=== PATIENT | male | born 1985 | race Hispanic/Latino ===

== ENCOUNTER 2016-07-15 17:57 | Emergency (ER) | payer SELFPAY ==
--- NOTE | 2016-07-15 22:38 | Emergency Department Report ---
ED Laceration HPI - HPI Chief Complaint: Laceration/Recheck/Suture Stated Complaint: LAC TO L FOOT Time Seen by Provider: 07/15/16 21:13 Occurred When: Today Location: Lower Extremity (left anteriro ankle) Severity: mild Tetanus Status: Up to Date (2014) Laceration Symptoms: Yes Pain, No Foreign Body Sensation, No Numbness, No Weakness Other History: 30-year-old male presents with complaint of accidentally bumping his left ankle into a piece of ceramic tile lying on ground in backyard. Patient states that he sustained a laceration to the left anterior ankle. Denies any other injuries. Visible 2 inch laceration overlying anterior upper aspect of left ankle. States that he received a tetanus shot in 2015. Denies any other injuries. Patient is fully ambulatory. ED Review of Systems ROS: Stated complaint: LAC TO L FOOT Other details as noted in HPI Constitutional: denies: chills, fever Eyes: denies: eye pain, eye discharge, vision change ENT: denies: ear pain, throat pain Respiratory: denies: cough, shortness of breath, wheezing Cardiovascular: denies: chest pain, palpitations Endocrine: no symptoms reported Gastrointestinal: denies: abdominal pain, nausea, diarrhea Genitourinary: denies: urgency, dysuria Musculoskeletal: denies: back pain, joint swelling, arthralgia Skin: denies: rash, lesions Neurological: denies: headache, weakness, paresthesias Psychiatric: denies: anxiety, depression Hematological/Lymphatic: denies: easy bleeding, easy bruising ED Past Medical Hx - Past Medical History Previous Medical History?: No - Surgical History Additional Surgical History: Hernia repair - Social History Smoking Status: Current Every Day Smoker Substance Use Type: None - Medications Home Medications: Home Medications Medication Instructions Recorded Confirmed Last Taken Type Cephalexin [Keflex] 500 mg PO Q12HR #10 cap 07/15/16 Unknown Rx Ibuprofen [Motrin] 600 mg PO Q8H PRN #30 tablet 07/15/16 Unknown Rx Neomycn/Baci Zn/Pmyx Bs/Pramox 28 gm TP BID #1 oint...g. 07/15/16 Unknown Rx [Triple Antibioti-Pain Rlf Oint] Laceration Physical Exam - Exam General: Vital signs noted. No distress. Alert and acting appropriately. Wound Length (cm): 4 Laceration Location: Lower Extremity (left anterior ankle) Full Body Front + Back: 1 - 4 cm horizontal laceration superficial depth across top of left ankle Laceration Exam: Yes Normal Distal CMS (social sensation fully intact dorsalis pedis and posterior tibial pulses fully intact on palpation), No Foreign Body, No Exposed Tendon, Vessel, or Nerve, No Tendon Injury (range of motion ankle/ foot fully intact against resistance patient fully ambulatory and no sign of drop foot) ED Course Vital Signs 07/15/16 18:00 Temperature 98.6 F Pulse Rate 100 H Respiratory 16 Rate Blood Pressure 160/86 O2 Sat by Pulse 98 Oximetry - Laceration /Wound Repair Left Lower Anterior Ankle Wound Location: lower extremity (left ankle anterior aspect) Wound Length (cm): 4 Wound's Depth, Shape: superficial Wound Explored: clean Irrigated w/ Saline (ccs): 1,000 Betadine Prep?: Yes Anesthesia: Lidocaine w/ Epi Volume Anesthetic (ccs): 4 Wound Repaired With: sutures Suture Size/Type: 3:0, nylon Number of Sutures: 7 Layer Closure?: No ED Medical Decision Making - Medical Decision Making A/P: Laceration 1-no neurovascular injury to foot, range of motion intact patient fully ambulatory. Sutures to be removed in 7-10 days 2-tetanus updated 2014 3-Motrin when necessary, triple antibiotic ointment 4- and advised to return to the ED for any fevers chills pus drainage erythema at site of laceration Critical care attestation.: If time is entered above; I have spent that time in minutes in the direct care of this critically ill patient, excluding procedure time. ED Disposition Clinical Impression: Laceration of left ankle Qualifiers: Encounter type: initial encounter Qualified Code(s): S91.012A - Laceration without foreign body, left ankle, initial encounter Disposition: DISCHARGED TO HOME OR SELFCARE Is pt being admited?: No Does the pt Need Aspirin: No Condition: Stable Instructions: Laceration (ED), Suture Care (ED) Additional Instructions: Sutures to be removed in 7-10 days Prescriptions: Cephalexin [Keflex] 500 mg PO Q12HR #10 cap Ibuprofen [Motrin] 600 mg PO Q8H PRN #30 tablet PRN Reason: Pain Neomycn/Baci Zn/Pmyx Bs/Pramox [Triple Antibioti-Pain Rlf Oint] 28 gm TP BID #1 oint...g. Time of Disposition: 22:38
[2016-07-15 22:56] VITALS: BP 137/66
== END 2016-07-15 22:57 | disposition home or self-care (01) ==
LOC: ED 17:57
DX: S91.012A Laceration without foreign body, left ankle, initial encounter (principal); F17.200 Nicotine dependence, unspecified, uncomplicated; X58.XXXA Exposure to other specified factors, initial encounter; Y93.89 Activity, other specified; Y99.9 Unspecified external cause status; Y92.89 Other specified places as the place of occurrence of the external cause

== ENCOUNTER 2017-10-11 11:41 | Emergency (ER) | payer OTHER ==
[2017-10-11] MEDS ORDERED: TORADOL IM ONE (12:30)
[2017-10-11 13:16] LABS: Bilirubin,Urine NEG (Negative); Blood,Urine NEG (Negative); Color,Urine Yellow (Yellow); Protein,Urine <15 mg/dL mg/dL (Negative); Urobilinogen,Urine < 2.0 mg/dL (<2.0)
--- NOTE | 2017-10-11 13:36 | Emergency Department Report ---
ED General Adult HPI - General Chief complaint: Pain General Stated complaint: BODY PAIN FOR A WEEK Time Seen by Provider: 10/11/17 12:27 Source: patient Mode of arrival: Ambulatory Limitations: No Limitations - History of Present Illness Initial comments: Patient is a 32-year-old male who is presenting with 2 days of body aches. Patient states that he has some achiness in his lower back as well as his thighs and his left upper extremity. Patient denies any trauma. 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 Patient spiked a fever yesterday. Patient denies any nausea vomiting diarrhea this time. Severity scale (0 -10): 4 - Related Data Previous Rx's Medication Instructions Recorded Last Taken Type Cephalexin [Keflex] 500 mg PO Q12HR #10 cap 07/15/16 Unknown Rx Ibuprofen [Motrin] 600 mg PO Q8H PRN #30 tablet 07/15/16 Unknown Rx Neomycn/Bacitrc/Polymyx/Pramox 28 gm TP BID #1 oint...g. 07/15/16 Unknown Rx [Triple Antibioti-Pain Rlf Oint] Ibuprofen [Motrin] 800 mg PO Q8HR PRN #20 tablet 10/11/17 Unknown Rx traMADol [Ultram] 50 mg PO Q6HR PRN #10 tablet 10/11/17 Unknown Rx Allergies Allergy/AdvReac Type Severity Reaction Status Date / Time No Known Allergies Allergy Unverified 07/15/16 22:56 ED Review of Systems ROS: Stated complaint: BODY PAIN FOR A WEEK Other details as noted in HPI Comment: All other systems reviewed and negative ED Past Medical Hx - Past Medical History Previous Medical History?: No - Surgical History Additional Surgical History: Hernia repair, LEFT HAND SURGERY - Social History Smoking Status: Former Smoker Substance Use Type: Alcohol - Medications Home Medications: Home Medications Medication Instructions Recorded Confirmed Last Taken Type Cephalexin [Keflex] 500 mg PO Q12HR #10 cap 07/15/16 Unknown Rx Ibuprofen [Motrin] 600 mg PO Q8H PRN #30 tablet 07/15/16 Unknown Rx Neomycn/Bacitrc/Polymyx/Pramox 28 gm TP BID #1 oint...g. 07/15/16 Unknown Rx [Triple Antibioti-Pain Rlf Oint] Ibuprofen [Motrin] 800 mg PO Q8HR PRN #20 tablet 10/11/17 Unknown Rx traMADol [Ultram] 50 mg PO Q6HR PRN #10 tablet 10/11/17 Unknown Rx ED Physical Exam - General Limitations: No Limitations General appearance: alert, in no apparent distress - Head Head exam: Present: atraumatic, normocephalic - Eye Eye exam: Present: normal appearance - ENT ENT exam: Present: mucous membranes moist - Neck Neck exam: Present: normal inspection - Respiratory Respiratory exam: Present: normal lung sounds bilaterally. Absent: respiratory distress, wheezes, rales, rhonchi - Cardiovascular Cardiovascular Exam: Present: regular rate, normal rhythm. Absent: systolic murmur, diastolic murmur, rubs, gallop - GI/Abdominal GI/Abdominal exam: Present: soft, normal bowel sounds. Absent: distended, tenderness, guarding, rebound - Rectal Rectal exam: Present: deferred - Extremities Exam Extremities exam: Present: normal inspection - Back Exam Back exam: Present: normal inspection - Neurological Exam Neurological exam: Present: alert, oriented X3 - Psychiatric Psychiatric exam: Present: normal affect, normal mood - Skin Skin exam: Present: warm, dry, intact, normal color. Absent: rash ED Course Vital Signs 10/11/17 11:52 Temperature 98.4 F Pulse Rate 90 Respiratory 20 Rate Blood Pressure 116/71 O2 Sat by Pulse 99 Oximetry ED Medical Decision Making - Lab Data Lab Results 10/11/17 Range/Units 12:39 Urine Color Yellow (Yellow) Urine Turbidity Clear (Clear) Urine pH 5.0 (5.0-7.0) Ur Specific Young 1.023 (1.003-1.030) Urine Protein <15 mg/dl (Negative) mg/dL Urine Glucose (UA) Neg (Negative) mg/dL Urine Ketones Neg (Negative) mg/dL Urine Blood Neg (Negative) Urine Nitrite Neg (Negative) Urine Bilirubin Neg (Negative) Urine Urobilinogen < 2.0 (<2.0) mg/dL Ur Leukocyte Esterase Neg (Negative) Urine WBC (Auto) 2.0 (0.0-6.0) /HPF Urine RBC (Auto) 1.0 (0.0-6.0) /HPF - Medical Decision Making Patient most likely has a viral illness with some myalgias. Patient did have a urinalysis done to rule out the possibility of rhabdomyolysis patient did not have any blood in the urine. Patient be discharged home with meds for symptomatic relief. Critical care attestation.: If time is entered above; I have spent that time in minutes in the direct care of this critically ill patient, excluding procedure time. ED Disposition Clinical Impression: Viral illness, Myalgia Disposition: - TO HOME OR SELFCARE Is pt being admited?: No Does the pt Need Aspirin: No Condition: Stable Instructions: Musculoskeletal Pain (ED), Viral Syndrome (ED) Referrals: PRIMARY CARE, [Primary Care Provider] - 3-5 Days Time of Disposition: 13:36
[2017-10-11 13:57] VITALS: BP 120/74
== END 2017-10-11 13:56 | disposition home or self-care (01) ==
LOC: ED 11:41
DX: B34.9 Viral infection, unspecified (principal); Z87.891 Personal history of nicotine dependence
CPT/HCPCS: 81001; 96372; 99283; J1885